=== PATIENT | male | born 1975 ===

== ENCOUNTER 2017-01-03 20:57 | Emergency (ER) | payer MEDICAID ==
[2017-01-03 21:00] VITALS: BMI 26.6
[2017-01-03 21:02] VITALS: O2SAT 94
[2017-01-03] MEDS ORDERED: Sodium Chloride 0.9% 1,000 ML IV STA (21:03)
[2017-01-03] MEDS ORDERED: Naloxone 0.4 mg/ml Inj (Adult) IVP STA (21:03)
[2017-01-03] MEDS ORDERED: Naloxone 0.4 mg/ml Inj (Adult) ONE (21:07)
--- NOTE | 2017-01-03 21:17 | ED PDOC ---
HPI: Psych/Substance Abuse Time Seen by Provider: 01/03/17 20:59 Chief Complaint (Nursing): Substance Abuse Chief Complaint (Provider): substance abuse History Per: Family ("friends") History/Exam Limitations: clinical condition Onset/Duration Of Symptoms: Unknown Additional Complaint(s): Bhupendra Sweet is a 41 year old male, with no previous medical history, who presents to the ED via his "friends" for an overdose. According to friends, patient was found unconscious with a needle in his hand. PMD: none provided Past Medical History Reviewed: Historical Data, Nursing Documentation, Vital Signs Vital Signs: Last Vital Signs Temp Pulse 144 H 01/03/17 20:59 Resp 12 01/03/17 20:59 BP 178/130 H 01/03/17 20:59 Pulse Ox 94 L 01/03/17 20:59 - Medical History PMH: No Chronic Diseases - Surgical History Surgical History: No Surg Hx - Family History Family History: States: Unknown Family Hx - Social History Drugs: Other (heroin ) - Allergies Allergies/Adverse Reactions: Allergies Allergy/AdvReac Type Severity Reaction Status Date / Time No Known Allergies Allergy Verified 01/03/17 20:59 Review of Systems Review Of Systems: ROS cannot be obtained secondary to pt's inabilty to answer questions. Physical Exam - Reviewed Nursing Documentation Reviewed: Yes Vital Signs Reviewed: Yes - Physical Exam Head Exam: Positive for: ATRAUMATIC, NORMAL INSPECTION, NORMOCEPHALIC Skin: Positive for: Diaphoresis, Pallor Eye Exam: Negative for: Normal appearance (pupils pinpoint ) Cardiovascular/Chest: Positive for: Other (bounding pulses ) Respiratory: Positive for: Other (shallow breath sounds ) Neurologic/Psych: Positive for: Other (obtunded and unresponsive) - Laboratory Results Result Diagrams: 01/03/17 21:30 01/03/17 21:30 - ECG O2 Sat by Pulse Oximetry: 94 (RA) Pulse Ox Interpretation: Abnormal (resolved) - Critical Care Total Time (In Min): 30 Medical Decision Making Medical Decision Making: Initial Impression: Substance Overdose Initial Plan: * EKG * labs * alcohol serum * acetaminophen * salicylate * urine drug screen * IV NS 1,000 ml at 1,000 ml/hr * narcan 2 mg IV * zofran 4 mg IV * urinalysis * reevaluatoin 20:51 Patient arrived to ED in an obtunded state, unresponsive to verbal and painful stimuli with pallor, diaphoresis, pinpoint pupils, shallow breath sounds and bounding pulses. 20:53 2 mg narcan administered Patient became alert and able to give history stating he shot 2 bags of heroin. Patient has no memory of events prior to arrival. 2330 Pt. remains completely awake and alert with now complete normal vitals, eating full meal. Dangers of overdose discussed with patient, will d/c home, friend with patient. Scribe Attestation: Documented by Kat Camacho, acting as a scribe for Tenzin Lopez MD. Provider Scribe Attestation: All medical record entries made by the Scribe were at my direction and personally dictated by me. I have reviewed the chart and agree that the record accurately reflects my personal performance of the history, physical exam, medical decision making, and the department course for this patient. I have also personally directed, reviewed, and agree with the discharge instructions and disposition. Disposition - Clinical Impression Clinical Impression: Heroin overdose - Disposition Referrals: [facility] [Outside] Disposition Time: 23:30 Condition: STABLE Instructions: Narcotic Abuse (ED)
[2017-01-03 21:49] LABS: BASO # 0.2 K/uL (0.0-0.2); BASO % 0.9 % (0.0-2.0); EOS # 0.5 K/uL (0.0-0.7); EOS % 2.7 % (0.0-4.0); HEMATOCRIT 51.5 % (35.0-51.0); LYMPH # 6.4 K/uL (1.0-4.3); LYMPH % 37.3 % (20.0-40.0); MEAN CELL VOLUME 90.1 fl (80.0-94.0); MEAN CORPUSCULAR HGB CONC 33.3 g/dL (33.0-37.0); MEAN PLATELET VOLUME 10.7 fl (7.2-11.7); MONO # 1.6 K/uL (0.0-0.8); MONO % 9.5 % (0.0-10.0); NEUT # 8.5 K/uL (1.8-7.0); NEUT % 49.6 % (50.0-75.0); NRBC % 0.1 % (0.0-0.0); RED CELL DISTRIBUTION WIDTH 13.5 % (11.5-14.5); WHITE BLOOD COUNT 17.1 K/uL (4.8-10.8)
[2017-01-03 21:59] LABS: ALCOHOL SERUM < 10 mg/dl (0-10); BLOOD UREA NITROGEN 19 mg/dl (9-20); CALCIUM 9.7 mg/dL (8.4-10.2); CARBON DIOXIDE 27 mmol/L (22-30); CHLORIDE 101 mmol/L (98-107); GFR AFRICAN-AMERICAN > 60; GLUCOSE,RANDOM 131 mg/dL (75-110); POTASSIUM 3.9 MMOL/L (3.6-5.0); SODIUM 142 mmol/l (132-148)
[2017-01-03 23:27] LABS: RBC URINE 6 /hpf (0-3); URINE BACTERIA RARE (<OCC); URINE BILIRUBIN NEGATIVE (NEGATIVE); URINE BLOOD NEGATIVE (NEGATIVE); URINE COLOR YELLOW (YELLOW); URINE GLUCOSE (UA) NEG (Normal); URINE KETONE NEGATIVE (NEGATIVE); URINE LEUKOCYTE ESTERASE NEG Leu/uL (Negative); URINE PROTEIN 30 mg/dL (NEGATIVE); URINE UROBILINOGEN 0.2-1.0 mg/dL (0.2-1.0); WBC URINE 3 /hpf (0-5)
[2017-01-04 03:36] VITALS: BP 109/68; PULSE 85; RESP 16; TEMP 98.8
--- NOTE | 2017-01-04 13:55 | CARD ---
APPROVED REPORT EKG Measurement Heart [id number] <Conclusion> Normal sinus rhythm Possible Left atrial enlargement Borderline ECG
== END 2017-01-04 00:15 | disposition home or self-care (01) ==
LOC: H.ER 20:57
DX: T40.1X1A Poisoning by heroin, accidental (unintentional), initial encounter (principal)

== ENCOUNTER 2018-06-08 22:26 | Emergency (ER) | payer MEDICAID ==
[2018-06-08 22:26] VITALS: BMI 26.6
--- NOTE | 2018-06-08 23:25 | ED PDOC ---
HPI: Psych/Substance Abuse Time Seen by Provider: 06/08/18 23:00 Chief Complaint (Nursing): Substance Abuse Chief Complaint (Provider): substance abuse History Per: Patient, EMS History/Exam Limitations: no limitations Additional Complaint(s): 42 y/o male brought in by EMS for overdose. Patient was [facility] un[facility] in the [facility] and was given two rounds of Narcan by police with positive response. Patient awake, states he injected one bag of heroin around 21:30 tonight. Patient denies acute medical or psychiatric complaints, just feels tired. Past Medical History Reviewed: Historical Data, Nursing Documentation, Vital Signs Vital Signs: Last Vital Signs Temp 97.4 F L 06/08/18 22:30 Pulse 82 06/08/18 22:30 Resp 17 06/08/18 22:30 BP 150/87 06/08/18 22:30 Pulse Ox 98 06/08/18 22:30 - Medical History PMH: Back Problems - Surgical History Surgical History: No Surg Hx - Family History Family History: States: Unknown Family Hx - Social History Current smoker - smoking cessation education provided: Yes Alcohol: None Drugs: Opiates - Allergies Allergies/Adverse Reactions: Allergies Allergy/AdvReac Type Severity Reaction Status Date / Time No Known Allergies Allergy Verified 01/03/17 20:59 Review of Systems ROS Statement: Except As Marked, All Systems Reviewed And Found Negative Physical Exam - Reviewed Nursing Documentation Reviewed: Yes Vital Signs Reviewed: Yes - Physical Exam Appears: Positive for: Well, Non-toxic, No Acute Distress (sleepy but arousable to verbal stimuli) Head Exam: Positive for: ATRAUMATIC, NORMAL INSPECTION, NORMOCEPHALIC Skin: Positive for: Normal Color Eye Exam: Positive for: Normal appearance ENT: Positive for: Normal ENT Inspection Cardiovascular/Chest: Positive for: Regular Rate, Rhythm Respiratory: Positive for: Normal Breath Sounds Gastrointestinal/Abdominal: Positive for: Normal Exam Back: Positive for: Normal Inspection Extremity: Positive for: Normal ROM Neurologic/Psych: Positive for: Alert, Oriented (x3) - ECG O2 Sat by Pulse Oximetry: 98 - Progress ED Course And Treament: -accucheck -satellite project site monitor 00:30 Patient sleeping, no acute distress; vitals stable on monitor 2:00 Patient sleeping, no acute distress; vitals stable on monitor 3:30 Patient sleeping, no acute distress; vitals stable on monitor 5:00 Patient awake, alert, oriented x3. Ambulating steady gait. Vitals stable. Tolerated juice Patient requires no further intervention in the ED and is stable for discharge at this time Disposition - Clinical Impression Clinical Impression: Heroin overdose - Patient ED Disposition Is Patient to be Admitted: No Counseled Patient/Family Regarding: Studies Performed, Diagnosis, Need For Followup - Disposition Disposition: Routine/Home Disposition Time: 04:38 Condition: IMPROVED Instructions: Drug Abuse and Drug Addiction (DC), Narcotic Overdose
[2018-06-09 03:50] VITALS: RESP 17
[2018-06-09 04:38] VITALS: O2SAT 98
[2018-06-09 05:37] VITALS: BP 130/69; PULSE 76; TEMP 98.1
== END 2018-06-09 05:32 | disposition home or self-care (01) ==
LOC: H.ER 22:26
DX: T40.1X1A Poisoning by heroin, accidental (unintentional), initial encounter (principal); F17.200 Nicotine dependence, unspecified, uncomplicated